=== PATIENT | male | born 1965 | race Caucasian/White ===

== ENCOUNTER 2022-10-27 16:44 | Observation (INO) ==
[2022-10-27 17:35] LABS: ABS Basophils 0.1 10^3/uL (0.0-0.1); ABS Lymphocytes 0.9 10^3/uL (1.0-4.8); ABS Monocytes 0.5 10^3/uL (0.0-1.1); ABS Neutrophils 13.6 10^3/uL (1.5-7.6); ABS Nucleated RBC 0.04 10^3/ul; Eosinophil % 0.1 %; Hematocrit 51.9 % (38-53); Hemoglobin 18.3 g/dL (13.2-16.3); Lymphocyte % 6.2 %; Mean Corpuscular Hemoglobin 31.7 pg (27-33); Mean Corpuscular Hgb Conc 35.3 g/dL (31-36); Mean Corpuscular Volume 89.8 fL (80-97); Mean Platelet Volume 8.6 fL (7.5-11.2); Nucleated Red Blood Cells % 0.2 /100 WBC (0.0-0.4); Platelet Count 258 10^3/uL (150-450); Red Blood Count 5.78 10^6/uL (4.06-5.63); Red Cell Distribution Width 12.9 % (12-17); White Blood Count 15.1 10^3/uL (3.6-10.2)
[2022-10-27 17:44] LABS: ALT 22 U/L (7-52); AST 21 U/L (13-39); Albumin/Globulin Ratio 1.8 (1-3); Alkaline Phosphatase 36 U/L (35-149); Anion Gap 12 mmol/L (2-16); Blood Urea Nitrogen 15 mg/dL (6-24); CO2 Carbon Dioxide 30 mmol/L (22-32); Calcium 10.8 mg/dL (8.6-10.3); Chloride 99 mmol/L (101-111); Creatinine, Serum 0.93 mg/dL (0.67-1.17); Globulin 2.8 g/dL (2-4); Glucose 127 mg/dL (70-100); INR 1.01 (0.88-1.18); Potassium 4.1 mmol/L (3.5-5.0); Sodium 141 mmol/L (135-145); Total Protein 7.8 g/dL (6.4-8.9)
[2022-10-27 17:50] LABS: High Sens Troponin Baseline 3 pg/mL (<20)
[2022-10-27 18:53] LABS: High Sensitivity Troponin 1 Hr 3 pg/mL (<20)
[2022-10-27] MEDS ORDERED: Ondansetron ODT 4 mg TAB 4 MG TAB SL ONE (18:58)
[2022-10-27] MEDS ORDERED: Lactated Ringers 1000 ml BAG 1,000 ML IV ONE (21:26)
[2022-10-27 21:53] LABS: C Reactive Protein 1.09 mg/L (<8.01); Lipase < 10 U/L (11.0-82.0)
[2022-10-27] MEDS ORDERED: Iohexol 350 (CONTRAST) 500 ML MDV IV ONE (22:09)
[2022-10-27 22:22] LABS: Urine Appearance Cloudy; Urine Bilirubin Negative (Negative); Urine Blood Negative (Negative); Urine Color Yellow; Urine Glucose Negative (Negative); Urine Ketones 1+ (Negative); Urine Nitrite Negative (Negative); Urine Protein 1+(30 mg/dL) (Negative); Urine Specific Gravity 1.025 (1.002-1.030); Urine Urobilinogen Negative (Negative)
[2022-10-27 22:24] LABS: Urine Bacteria Absent (Absent); Urine Red Blood Cell Trace(0-2/hpf) (Absent); Urine White Blood Cell Trace(0-5/hpf) (Absent)
[2022-10-28] MEDS ORDERED: Ondansetron 4 mg VIAL 2 MG/ML 2 ml VIAL IV ONE (00:17)
[2022-10-28] MEDS ORDERED: Lidocaine 2% PF 5 ML VIAL ONE (02:28)
[2022-10-28] MEDS ORDERED: Succinylcholine 200 mg VIAL 20 mg/ml 10 ml VIAL (200 mg) ONE (02:28)
[2022-10-28] MEDS ORDERED: Phenylephrine 40 mcg/mL 10mL (400mcg) SYRINGE ONE (02:28)
[2022-10-28] MEDS ORDERED: Midazolam 5 mg/5 ml VIAL 1 mg/ml 5 ml VIAL (5 mg) ONE (02:28)
[2022-10-28] MEDS ORDERED: fentaNYL 100 mcg/2 ml 50 MCG/ML VIAL ONE (02:28)
[2022-10-28] MEDS ORDERED: Ondansetron 4 mg VIAL 2 MG/ML 2 ml VIAL ONE (02:28)
[2022-10-28] MEDS ORDERED: Propofol 10 MG/ML 20 ML BTL ONE (02:28)
[2022-10-28] MEDS ORDERED: Dexamethasone IV 4 MG/ML VIAL 1 ml VIAL ONE (02:28)
[2022-10-28] MEDS ORDERED: Rocuronium 50 mg VIAL 10 mg/ml 5 ml VIAL (50 mg) ONE (02:28)
[2022-10-28] MEDS ORDERED: ceFOXitin 2 GM IVPREMIX 2 GM/50 ML BAG ONE ×2 (02:31→02:57)
[2022-10-28] MEDS ORDERED: Famotidine IV 10 MG/ML 2 ml VIAL (20 mg) ONE (02:58)
[2022-10-28] MEDS ORDERED: Bupivacaine 0.25% EPI 200,000 30 ML SDV ONE (03:13)
[2022-10-28] MEDS ORDERED: Acetaminophen IV 1 GM/100ML 1,000 MG/100 ML BAG IV ONE (03:55)
[2022-10-28] MEDS ORDERED: HYDROmorphone 1 MG/1 ML SYRINGE IV PRN (03:58)
[2022-10-28] MEDS ORDERED: Naloxone 0.4 mg VIAL 0.4 mg/ml 1 ml VIAL IV PRN (03:58)
[2022-10-28] MEDS ORDERED: fentaNYL 100 mcg/2 ml 50 MCG/ML VIAL IV PRN (03:58)
[2022-10-28] MEDS ORDERED: Sugammadex 500 MG/5 ML 5 ml VIAL IV PUSH ONE (04:08)
[2022-10-28] MEDS ORDERED: oxyCODONE/Acetamin 5/325 mg TAB PO PRN (04:31)
[2022-10-28] MEDS ORDERED: Ondansetron 4 mg VIAL 2 MG/ML 2 ml VIAL IV PRN (04:31)
[2022-10-28] MEDS ORDERED: Lactated Ringers 1000 ml BAG 1,000 ML IV SCH (05:00)
[2022-10-28 12:23] LABS: ABS Lymphocytes 0.7 10^3/uL (1.0-4.8); ABS Neutrophils 11.5 10^3/uL (1.5-7.6); ABS Nucleated RBC 0.01 10^3/ul; Eosinophil % 0.1 %; Hematocrit 47.1 % (38-53); Hemoglobin 16.3 g/dL (13.2-16.3); Mean Corpuscular Hemoglobin 30.7 pg (27-33); Mean Corpuscular Hgb Conc 34.6 g/dL (31-36); Mean Corpuscular Volume 88.6 fL (80-97); Mean Platelet Volume 8.7 fL (7.5-11.2); Nucleated Red Blood Cells % 0.1 /100 WBC (0.0-0.4); Platelet Count 248 10^3/uL (150-450); Red Blood Count 5.32 10^6/uL (4.06-5.63); Red Cell Distribution Width 12.8 % (12-17); White Blood Count 13.2 10^3/uL (3.6-10.2)
[2022-10-28 14:49] VITALS: BP 139/78
== END 2022-10-28 16:25 | disposition home or self-care (01) ==
LOC: EDHOLD 16:44 → ED 16:44 → AA 10-28 02:33 → SSU 10-28 05:48
PROVIDERS: ADMIT Surgery; ATTEND Surgery